=== PATIENT | female | born 1965 | race Hispanic/Latino ===

== ENCOUNTER → 2020-12-27 | Day surgery (SDC) | payer BC ==
[2020-12-27 15:50] VITALS: BP 129/86
== END | disposition home or self-care (01) ==
LOC: OR 11:50
PROVIDERS: ATTEND Internal Medicine Gastroenterology
DX: Z12.11 Encounter for screening for malignant neoplasm of colon (principal); D12.3 Benign neoplasm of transverse colon; K64.8 Other hemorrhoids; I10 Essential (primary) hypertension; M81.0 Age-related osteoporosis without current pathological fracture; Z01.810 Encounter for preprocedural cardiovascular examination; Z01.812 Encounter for preprocedural laboratory examination; Z20.822 Contact with and (suspected) exposure to COVID-19
CPT/HCPCS: 45380; 93005; U0002; 45378

== ENCOUNTER 2021-01-19 13:00 | Outpatient (RCR) | payer BC, OTHER | END 2021-01-22 | LOC: PT 13:00 | PROVIDERS: ATTEND Specialist | DX: S39.012D Strain of muscle, fascia and tendon of lower back, subsequent encounter (principal) ==

== ENCOUNTER → 2021-02-21 | Outpatient (RCR) | payer BC, OTHER | LOC: PT 01-24 13:24 | PROVIDERS: ATTEND Specialist | DX: S39.012D Strain of muscle, fascia and tendon of lower back, subsequent encounter (principal) ==

== ENCOUNTER 2021-03-14 13:00 | Outpatient (RCR) | payer OTHER | END 2021-03-24 | LOC: PT 13:00 | PROVIDERS: ATTEND Specialist | DX: S39.012D Strain of muscle, fascia and tendon of lower back, subsequent encounter (principal) ==